=== PATIENT | female | born 1985 | race Caucasian/White ===

== ENCOUNTER → 2020-05-29 | Outpatient (CLI) | payer OTHER ==
[~2020-05-29] MED LIST: BENTYL 20MG TAB20 MG PO; COLACE 100MG C100 MG PO; IBUPROFEN600 MG PO; LODINE CAP 300300 MG PO; LORTAB 5-325 M1 EACH PO; NORFLEX 100 MG100 MG PO
== END ==
LOC: HEART 5 15:30
DX: R00.2 Palpitations (principal); I49.8 Other specified cardiac arrhythmias
CPT/HCPCS: 93306

== ENCOUNTER 2020-07-16 05:29 | Emergency (ER) | payer OTHER ==
[~2020-07-16 05:29] MED LIST changes: -BENTYL 20MG TAB20 MG PO
[2020-07-16 06:14] LABS: HEMOGLOBIN 13.3 gm/dl (12.3-15.3); RED BLOOD COUNT 4.63 M/UL (4.00-5.10); WHITE BLOOD COUNT 9.6 K/UL (4.5-11.0)
[2020-07-16 06:45] LABS: BUN/CREATININE RATIO 25 (0-10)
[2020-07-16] MEDS ORDERED: BENTYL 20MG TAB20 MG PO (08:41)
== END 2020-07-16 09:20 | disposition home or self-care (01) ==
LOC: ER1 05:29
PROVIDERS: Family Medicine
DX: K52.9 Noninfective gastroenteritis and colitis, unspecified (principal); F17.210 Nicotine dependence, cigarettes, uncomplicated
CPT/HCPCS: 36415; 80053; 81001; 82550; 82553; 83690; 84484; 84703; 85025; 96374; 96375; 99284; Q9967

== ENCOUNTER 2020-07-17 23:21 | Emergency (ER) | payer OTHER ==
[~2020-07-17 23:21] MED LIST changes: +BENTYL 20MG TAB20 MG PO
[2020-07-18 01:38] LABS: HEMOGLOBIN 12.2 gm/dl (12.3-15.3); RED BLOOD COUNT 4.27 M/UL (4.00-5.10); WHITE BLOOD COUNT 10.1 K/UL (4.5-11.0)
[2020-07-18 01:59] LABS: BUN/CREATININE RATIO 18 (0-10)
== END 2020-07-18 04:30 | disposition home or self-care (01) ==
LOC: ER1 23:21
PROVIDERS: Emergency Medicine
DX: R07.89 Other chest pain (principal); F17.200 Nicotine dependence, unspecified, uncomplicated
CPT/HCPCS: 71046; 80053; 82550; 82553; 83690; 83874; 84484; 85025; 93005; 99285

== ENCOUNTER → 2020-09-11 | Outpatient (CLI) | payer OTHER | LOC: NM 09:00 | DX: R74.8 Abnormal levels of other serum enzymes (principal); R10.9 Unspecified abdominal pain; R94.5 Abnormal results of liver function studies | CPT/HCPCS: 78226; A9537 ==

== ENCOUNTER → 2021-03-31 | Outpatient (CLI) | payer OTHER | LOC: US 10:00 | DX: B18.1 Chronic viral hepatitis B without delta-agent (principal); R94.5 Abnormal results of liver function studies; R79.0 Abnormal level of blood mineral | CPT/HCPCS: 76705 ==